=== PATIENT | male | born 1990 | race Caucasian/White ===

== ENCOUNTER 2017-05-24 20:54 | Emergency (ER) | payer BC ==
[~2017-05-24] VITALS: Ht 170.2 cm; Wt 109.8 kg
[~2017-05-24 20:54] MED LIST: AUGMENTIN875 MG PO; NOHOMEMEDS
[2017-05-25] MEDS ORDERED: BENADRYL50 MG PO (02:05)
[2017-05-25] MEDS ORDERED: PEPCID20 MG PO (02:05)
[2017-05-25] MEDS ORDERED: MEDROL DOSEPAK4 MG PO (02:09)
[2017-05-25] MEDS ORDERED: EPIPEN ADU0.3 MG/0.3 IM (02:09)
[2017-05-25 02:23] VITALS: BP 115/65
== END 2017-05-25 02:25 | disposition home or self-care (01) ==
LOC: EME 20:54
DX: T78.1XXA Other adverse food reactions, not elsewhere classified, initial encounter (principal); Z91.013 Allergy to seafood
CPT/HCPCS: 99281; 99285; J1100; J1200; J7030; S0028